=== PATIENT | female | born 1965 | race African-American/Black ===

== ENCOUNTER 2020-08-22 13:15 | Emergency (ER) | payer MEDICAID ==
[~2020-08-22] VITALS: Ht 167.6 cm; Wt 69.0 kg
[2020-08-22] MEDS ORDERED: albuterol (13:27)
[2020-08-22] MEDS ORDERED: PREDNISONE 20MG TABLET PO STA (14:08)
[2020-08-22] MEDS ORDERED: ASPIRIN 81MG TABLET PO ONE (14:15)
[2020-08-22 15:24] LABS: CHLORIDE 106 mEq/L (98-107)
[2020-08-22 15:35] LABS: BASOPHILS % 0.5 % (0.0-2.0); EOSINOPHILS % 0.4 % (0.0-5.0); HEMATOCRIT. 41.9 % (36.0-48.0); HEMOGLOBIN. 13.7 g/dL (12.0-16.0); LYMPHOCYTES % 36.6 % (20.0-50.0); MEAN CORPUSCULAR HEMOGLOBIN 27.7 pg (28.0-32.0); MEAN CORPUSCULAR VOLUME 84.8 fL (81.0-99.0); MEAN PLATELET VOLUME 6.7 fl (7.4-10.4); MONOCYTES % 13.4 % (2.0-8.0); NEUTROPHILS % 49.1 % (40.0-76.0); PLATELET 259 x1000/uL (130-400); RED BLOOD CELL COUNT 4.94 mill/uL (4.2-5.4); RED CELL DISTRIBUTION WIDTH 13.7 % (11.6-14.6)
[2020-08-22 16:45] VITALS: BP 112/74
== END 2020-08-22 17:13 | disposition home or self-care (01) ==
LOC: ER 13:29
DX: R55 Syncope and collapse (principal); J45.901 Unspecified asthma with (acute) exacerbation; M54.30 Sciatica, unspecified side; Z98.890 Other specified postprocedural states; Z87.891 Personal history of nicotine dependence
CPT/HCPCS: 36415; 71045; 80053; 83880; 84484; 85025; 93005; 99285; J7512; Z7610

== ENCOUNTER 2021-12-18 15:23 | Emergency (ER) | payer MEDICAID ==
[~2021-12-18] VITALS: Ht 167.6 cm; Wt 73.0 kg
[~2021-12-18 15:23] MED LIST: albuterol
[2021-12-18 15:30] VITALS: BP 120/80
[2021-12-18 15:53] LABS: BASOPHILS % 0.4 % (0.0-2.0); EOSINOPHILS % 1.4 % (0.0-5.0); HEMATOCRIT. 41.4 % (36.0-48.0); HEMOGLOBIN. 13.5 g/dL (12.0-16.0); LYMPHOCYTES % 35.8 % (20.0-50.0); MEAN CORPUSCULAR HEMOGLOBIN 27.7 pg (28.0-32.0); MEAN CORPUSCULAR VOLUME 85.2 fL (81.0-99.0); MEAN PLATELET VOLUME 6.3 fl (7.4-10.4); MONOCYTES % 10.5 % (2.0-8.0); NEUTROPHILS % 51.9 % (40.0-76.0); PLATELET 291 x1000/uL (130-400); RED BLOOD CELL COUNT 4.86 mill/uL (4.2-5.4); RED CELL DISTRIBUTION WIDTH 13.8 % (11.6-14.6)
[2021-12-18 16:03] LABS: CHLORIDE 111 mEq/L (98-107); PROTHROMBIN TIME 11.1 sec (9.6-11.0)
== END 2021-12-18 16:33 | disposition home or self-care (01) ==
LOC: ER 15:23
DX: R04.0 Epistaxis (principal); J45.909 Unspecified asthma, uncomplicated; M54.30 Sciatica, unspecified side
CPT/HCPCS: 36415; 80053; 85025; 99283